=== PATIENT | male | born 1975 | race Caucasian/White ===

== ENCOUNTER → 2022-04-06 | Day surgery (SDC) | payer BC ==
[~2022-04-06] MED LIST: ACETAMINOPHEN 1000 MG/100 ML 100 ML IV ONE; ARIMIDEX1 MG PO; BUPIVACAINE HCL 0.5% INJ 30 ML VIAL INJ ONE; DEXAMETHASONE SOD PHOS INJ 4 MG/ML SDV ONE; FENTANYL CITRATE/PF 100MCG/2 ML INJ ONE; HYDROCODONE/APAP 5MG-325MG TAB ONE; KETOROLAC TROMETHAMINE 30 MG/ML VIAL ONE; LIDOCAINE HCL 2% LOCAL INJ 5 ML SDV VIAL INJ ONE; MEPERIDINE HCL INJ 25 MG/ML VIAL ONE; MIDAZOLAM HCL 2 MG/2 ML VIAL ONE; ONDANSETRON HCL INJ 2MG/ML 2ML 2 MG/ML VIAL ONE; POVIDONE IODINE 0.05% 0.05 % ML PO ONE; PROPOFOL IV EMULSION 10 MG/ML 20 ML VIAL ONE; ROPIVACAINE 0.5% 5 MG/ML 30 ML SDV ONE; SEVOFLURANE INHAL SOLN 250 ML PEN BTL ONE
[2022-04-06 11:05] VITALS: BP 151/86
== END | disposition home or self-care (01) ==
LOC: OR 06:30
PROVIDERS: ATTEND Orthopaedic Surgery
DX: S83.232A Complex tear of medial meniscus, current injury, left knee, initial encounter (principal); S83.282A Other tear of lateral meniscus, current injury, left knee, initial encounter; D75.89 Other specified diseases of blood and blood-forming organs; M22.42 Chondromalacia patellae, left knee; M67.52 Plica syndrome, left knee; M23.42 Loose body in knee, left knee; X58.XXXA Exposure to other specified factors, initial encounter; Z01.810 Encounter for preprocedural cardiovascular examination
CPT/HCPCS: 27599; 29879; 29882; 93005; J0131; J0690; J1100; J1885; J2001; J2175; J2250; J2405; J2704; J2795; J3010; 76000